=== PATIENT | female | born 1985 | race African-American/Black ===

== ENCOUNTER 2019-06-27 18:12 | Emergency (ER) | payer OTHER ==
[2019-06-27 18:25] VITALS: TEMP 98.1; BMI 28.1
--- NOTE | 2019-06-27 20:08 | PDOC ---
History of Present Illness - General Chief Complaint: Headache Stated Complaint: HEADACHE History Source: Patient Exam Limitations: No Limitations - History of Present Illness Initial Comments: 06/27/19 20:03 Patient is a 34yo female with no past medical history c/o HOUSE x 3 weeks. Patient states HAs are intermittent in the frontal, was 7/10, sharp throbbing, has to closed eyes due to the intensity of the pain. Took tylenol at 6 pm now 5 /10 no assoc/w nausea, vomiting, photophobia, phonophobia. States that she has a history of stress in the past and for the past 3 weeks she has been very stressed. He dad hospitalized 3 weeks ago with a stroke and subsequently and she never had the opportunity to see him. States she has been having this intermittent headache which can resolves with Tylenol however she is more concerned about her blood pressure which has been very elevated for the past 3 weeks. States her pressures have been with a systolic over 150s and diastolic over 90s. Denies nausea, vomiting, photophobia, phonophobia, dizziness, chest pain, numbness or tingling, fever, chills, neck stiffness. PMHX: neg PSOCHX: neg etoh, durg, cig ALL: NKDA GENERAL/CONSTITUTIONAL: [No fever or chills. No weakness. No weight change.] HEAD, EYES, EARS, NOSE AND THROAT: [No change in vision. No ear pain or discharge. No sore throat.] CARDIOVASCULAR: [No chest pain or shortness of breath.] RESPIRATORY: [No cough, wheezing, or hemoptysis.] GASTROINTESTINAL: [No nausea, vomiting, diarrhea or constipation. No rectal bleeding.] GENITOURINARY: [No dysuria, frequency, or change in urination.] MUSCULOSKELETAL: [No joint or muscle swelling or pain. No neck or back pain.] SKIN AND BREASTS: [No rash or easy bruising.] NEUROLOGIC: [(+) headache, (-) vertigo, loss of consciousness, or loss of sensation.] PSYCHIATRIC: [No depression or anxiety.] ENDOCRINE: [No increased thirst. No abnormal weight change.] HEMATOLOGIC/LYMPHATIC: [No anemia, easy bleeding, or history of blood clots.] ALLERGIC/IMMUNOLOGIC: [No hives or skin allergy. No latex allergy.] GENERAL: [The patient is awake, alert, and fully oriented, in no acute distress. ] HEAD: [Normal with no signs of trauma.] EYES: [Pupils equal, round and reactive to light, extraocular movements intact, sclera anicteric, conjunctiva clear.] ENT: [Ears normal, nares patent, oropharynx clear without exudates. Moist mucous membranes.] NECK: [Normal range of motion, supple without lymphadenopathy, JVD, or masses.] LUNGS: [Breath sounds equal, clear to auscultation bilaterally. No wheezes, and no crackles.] HEART: [Regular rate and rhythm, normal S1 and S2 without murmur, rub.] ABDOMEN: [Soft, nontender, normoactive bowel sounds. No guarding, no rebound. No masses.] EXTREMITIES: [Normal range of motion, no edema. No clubbing or cyanosis. No cords, erythema, or tenderness.] NEUROLOGICAL: [Cranial nerves II through XII grossly intact. Normal speech, normal gait, (-) nystagmus, 5/5 strength bilaterally] PSYCH: [Normal mood, normal affect.] SKIN: [Warm, Dry, normal turgor, no rashes or lesions noted.] Past History - Past Medical History Allergies/Adverse Reactions: Allergies Allergy/AdvReac Type Severity Reaction Status Date / Time No Known Allergies Allergy Verified 06/27/19 18:24 COPD: No - Immunization History Immunization Up to Date: Yes - Psycho Social/Smoking Cessation Hx Smoking History: Never smoked Hx Alcohol Use: No Drug/Substance Use Hx: No *Physical Exam - Vital Signs Last Vital Signs Temp Pulse Resp BP Pulse Ox 98.1 F 93 H 16 151/91 100 06/27/19 18:22 06/27/19 18:22 06/27/19 18:22 06/27/19 18:22 06/27/19 18:22 Medical Decision Making - Medical Decision Making 06/27/19 20:03 Patient is a 34yo female with no past medical history c/o HOUSE x 3 weeks. Patient states HAs are intermittent in the frontal, was 7/10, sharp throbbing, has to closed eyes due to the intensity of the pain. Took tylenol at 6 pm now 5 /10 no assoc/w nausea, vomiting, photophobia, phonophobia. States that she has a history of stress in the past and for the past 3 weeks she has been very stressed. He dad hospitalized 3 weeks ago with a stroke and subsequently and she never had the opportunity to see him. States she has been having this intermittent headache which can resolves with Tylenol however she is more concerned about her blood pressure which has been very elevated for the past 3 weeks. States her pressures have been with a systolic over 150s and diastolic over 90s. Patient is concerned for her blood pressure will monitor in the ER and discharge if stable. Patient offer pain meds in the ER but refused. I repeated patient's blood pressure systolics 140s diastolics 90s Gave patient follow-up to the clinic for blood pressure management. I discussed the physical exam findings, ancillary test results and final diagnoses with the patient. I answered all of the patient's questions. The patient was satisfied with the care received and felt comfortable with the discharge plan and treatment plan. The Patient agrees to follow up with the primary care physician within 24-72 hours. Discharge - Discharge Information Problems reviewed: Yes Clinical Impression/Diagnosis: Elevated blood pressure reading Headache Qualifiers: Headache type: tension-type Headache chronicity pattern: episodic headache Intractability: not intractable Qualified Code(s): G44.219 - Episodic tension- type headache, not intractable Condition: Stable Disposition: HOME - Follow up/Referral Referrals: Pablo Colon MD [Staff Physician] - - Patient Discharge Instructions Patient Printed Discharge Instructions: DI for Headache Additional Instructions: Your Discharge Instructions: You must call primary care physician within 24 hours to arrange follow-up. Return to the Emergency Department with any new, persistent or worsening symptoms, for fever, chills, SOB, dizziness or any other concerning changes that may occur. Monitor blood pressure under different conditions. - Post Discharge Activity
[2019-06-27] MEDS ORDERED: IBUPROFEN 600 MG TABLET (FP) PO ONE ×2 (20:29→20:37)
[2019-06-27 21:08] VITALS: BP 144/89; PULSE 75
== END 2019-06-27 21:05 | disposition home or self-care (01) ==
LOC: JER 18:12
DX: G44.219 Episodic tension-type headache, not intractable (principal); R03.0 Elevated blood-pressure reading, without diagnosis of hypertension
CPT/HCPCS: 99281-25